=== PATIENT | male | born 1940 | race African-American/Black ===

== ENCOUNTER 2018-04-18 11:08 | Emergency (ER) | payer SELFPAY ==
[~2018-04-18] VITALS: Ht 182.9 cm; Wt 79.8 kg
[2018-04-18 11:14] VITALS: Ht 182.9 cm; Wt 79.8 kg
[2018-04-18 12:16] LABS: BASOPHIL % 0.3 % (0-2); PLATELET COUNT 141 x10^3mcL (130-400)
[2018-04-18 12:25] LABS: CALCIUM 8.9 mg/dL (8.5-10.1); CARBON DIOXIDE 29.3 mmol/L (21-32); CHLORIDE SERUM 91 mmol/L (98-107); CREATININE SERUM 1.4 mg/dL (0.7-1.3); GLUCOSE SERUM 150 mg/dL (74-106); POTASSIUM SERUM 4.5 mmol/L (3.5-5.1); SODIUM SERUM 127 mmol/L (136-145)
[2018-04-18 12:29] LABS: ALBUMIN 3.6 g/dL (3.4-5.0); ALKALINE PHOSPHATASE 50 U/L (46-116); ALT/SGPT 28 U/L (16-63); AST/SGOT 40 U/L (15-37); BILIRUBIN TOTAL 0.8 mg/dL (0.20-1.00); LIPASE 216 IU/L (73-393); TOTAL PROTEIN, SERUM 7.6 g/dL (6.4-8.2)
[2018-04-18 12:33] LABS: RED CELL DISTRIBUTION WIDTH 15.2 % (11.5-14.5)
[2018-04-18 13:36] VITALS: BP 131/78
== END 2018-04-18 13:36 | disposition home or self-care (01) ==
LOC: ED 11:08
PROVIDERS: Emergency Medicine
DX: J11.1 Influenza due to unidentified influenza virus with other respiratory manifestations (principal); E11.9 Type 2 diabetes mellitus without complications; I10 Essential (primary) hypertension
CPT/HCPCS: 87804; J1885; J2405; J7030; Q0092

== ENCOUNTER 2018-04-23 09:46 | Emergency (ER) | payer SELFPAY ==
[~2018-04-23] VITALS: Ht 180.3 cm; Wt 75.7 kg
[2018-04-23 09:49] VITALS: Ht 180.3 cm; Wt 75.7 kg
[2018-04-23 11:00] LABS: BASOPHIL % 0.4 % (0-2)
[2018-04-23 11:01] LABS: RED CELL DISTRIBUTION WIDTH 14.9 % (11.5-14.5)
[2018-04-23 11:04] LABS: CALCIUM 8.5 mg/dL (8.5-10.1); CARBON DIOXIDE 30.7 mmol/L (21-32); CHLORIDE SERUM 91 mmol/L (98-107); CREATININE SERUM 1.2 mg/dL (0.7-1.3); GLUCOSE SERUM 261 mg/dL (74-106); POTASSIUM SERUM 3.1 mmol/L (3.5-5.1); SODIUM SERUM 130 mmol/L (136-145)
[2018-04-23 11:08] LABS: ALBUMIN 3.2 g/dL (3.4-5.0); ALKALINE PHOSPHATASE 55 U/L (46-116); ALT/SGPT 20 U/L (16-63); AST/SGOT 20 U/L (15-37); BILIRUBIN TOTAL 1.02 mg/dL (0.20-1.00); TOTAL PROTEIN, SERUM 7.5 g/dL (6.4-8.2)
[2018-04-23 11:34] LABS: PLATELET COUNT 175 x10^3mcL (130-400)
[2018-04-23 11:43] VITALS: BP 155/81
== END 2018-04-23 11:43 | disposition home or self-care (01) ==
LOC: ED 09:46
PROVIDERS: Emergency Medicine
DX: E11.65 Type 2 diabetes mellitus with hyperglycemia (principal); J11.1 Influenza due to unidentified influenza virus with other respiratory manifestations; I10 Essential (primary) hypertension
CPT/HCPCS: 82962; J1815; J7030